=== PATIENT | male | born 1980 | race Caucasian/White ===

== ENCOUNTER 2021-06-30 09:59 | Emergency (ER) | payer OTHER ==
[~2021-06-30 09:59] MED LIST: BENTYL10 MG PO; NORCO 5-325 TA1 EACH PO; ZOVIRAX800 MG PO
[2021-06-30 11:47] LABS: ALBUMIN 4.7 g/dL (3.4-5.0); BILIRUBIN - TOTAL 0.4 mg/dL (0.2-1.0); BUN/CREAT RATIO (CALC) 12.4 RATIO; CREATININE 1.05 mg/dL (0.67-1.17); GLOBULIN (CALCULATION) 3.9 g/dL; POTASSIUM 3.7 mmol/L (3.5-5.1); TOTAL PROTEIN 8.6 g/dL (6.4-8.2)
[2021-06-30 11:49] LABS: BASOPHIL 0.5 % (0-2); EOSINOPHIL 0.2 % (0-5); HCT 49.2 % (42.0-52.0); HGB 16.8 g/dl (13.2-18.0); LYMPHOCYTE 16.9 % (15-48); MCH 31.1 pg (25.0-31.0); MCHC 34.1 g/dL (32.0-36.0); MCV 90.9 fL (78.0-100.0); MONOCYTE 19.4 % (0-12); MPV 9.5 fL (6.0-9.5); NEUTROPHIL 62.8 % (41-80); NRBC 0; PLT 262 K/uL (150-400); RBC 5.41 M/uL (4.70-6.00); RDW 12.7 % (11.5-14.0); WBC 5.6 K/uL (4.0-10.5)
[2021-06-30 12:36] LABS: C-REACTIVE PROTEIN 3.9 mg/dL (<=0.90)
[2021-06-30 13:01] LABS: LACTIC ACID 0.8 mmol/L (0.4-1.9)
[2021-06-30] MEDS ORDERED: NORCO 5-325 TA1 EACH PO (17:15)
[2021-06-30] MEDS ORDERED: ONDANSETRON ODT4 MG PO (17:15)
[2021-06-30] MEDS ORDERED: TESSALON PERLE100 MG PO (17:15)
[2021-06-30] MEDS ORDERED: VENTOLIN HFA18 GM INH (17:15)
== END 2021-06-30 17:38 | disposition home or self-care (01) ==
LOC: FER 09:59
PROVIDERS: Emergency Medicine
DX: U07.1 COVID-19 (principal); F17.290 Nicotine dependence, other tobacco product, uncomplicated
CPT/HCPCS: 36415; 80053; 82728; 83605; 83615; 84145; 85025; 86140; J1170; J2405; J7030; U0002